=== PATIENT | male | born 1955 | race Caucasian/White ===

== ENCOUNTER 2020-05-26 06:54 | Day surgery (SDC) | payer OTHER ==
--- OUTSIDE RECORDS SUMMARY | 2020-05-26 06:47 | XMS REPORT | Clinical Summary ---
:1955 Author Organization [facility] Address [address] [place] [address] Care Team Providers Name Role Phone Asked, No Pcp Primary Care Provider Unavailable Allergies Not on File Medications Not on file Active Problems Not on file Encounters Date Type Specialty Care Team Description 03/24/2020 Hospital Encounter Radiology Vishnu Torres MD Hype rlipidemia, unspecified 03/24/2020 Hospital Encounter Radiology Vishnu Torres MD Hype rlipidemia, unspecified 03/24/2020 Travel 03/11/2020 Travel 03/09/2020 Transcribe Orders Access Vishnu Torres MD Hyper lipidemia, unspecified (Primary Dx) after 05/26/2019 Social History Tobacco Use Types Packs/Day Years Used Date Never Assessed Sex Assigned at Date Recorded Not on file Last Filed Vital Signs Not on file Plan of Treatment Health Maintenance Due Date Last Done Comments COVID-19 VACCINE (1 of 2) 1970 COLONOSCOPY SCREENING 2004 SHINGLES VACCINES (#1) 2004 INFLUENZA VACCINE 12/12/2019 65+ PNEUMOCOCCAL VACCINE (1 of 1 - PPSV23) 12/14/2019 Procedures Procedure Name Priority Date/Time Associated Diagnosis Comme nts US VASCULAR Routine 03/24/2020 11:14 AM Hyperlipidemia, Resul ts for this SCREENING HEART PHYSICAL THERAPIST ASSISTANT unspecified procedure ar e in SCAN PLUS the results section. CT HEART SCAN PLUS Routine 03/24/2020 8:31 AM Hyperlipidemia, Results for this W PHYSICIAN ORDER PHYSICAL THERAPIST ASSISTANT unspecified procedure are in the results section. after 05/26/2019 Results Pv vascular screening heart scan plus (self pay) (03/24/2020 11:14 AM PHYSICAL THERAPIST ASSISTANT) Specimen Narrative Performed At EXAM: US VASCULAR SCREENING HEART SCAN PLUS [facility] HISTORY:E78.5 Hyperlipidemia unspecifi ed, E78.5 COMPARISON: None available TECHNIQUE: Grayscale and color Doppler images were o btained of the carotid arteries and infrarenal abdominal aorta. Ankle -brachial indices were also obtained. IMPRESSION: 1. Calcified atherosclerotic plaque is in the left car otid artery bulb. Further evaluation with a dedicated manzano tid artery Doppler recommended. 2. No significant atherosclerotic plaque in the infrar enal abdominal aorta. No infrarenal abdominal aortic an eurysm appreciated. 3. Ankle brachial indices are within nor mal limits. Measured Ankle Brachial indices: Right leg Posterior tibial: 1.17 Dorsalis pedis: 1.09 Left leg Posterior tibial: 1.12 Dorsalis pedis: 1.19 [facility]-[id number] Procedure Note Interface, Radiology Results Incoming - 03/24/2020 11:35 AM PHYSICAL THERAPIST ASSISTANT EXAM: US VASCULAR SCREENING HEART SCAN PLUS HISTORY:E78.5 Hyperlipidemia unspecifie d, E78.5 COMPARISON: None available TECHNIQUE: Grayscale and color Doppler images were obtained of the carotid arteries and infrarenal abdominal aorta. Ankle-brachial indices were also obtained. IMPRESSION: 1. Calcified atherosclerotic plaque is i n the left carotid artery bulb. Further evaluation with a dedicated carotid artery Doppler recommended. 2. No significant atherosclerotic plaque in the infrarenal abdominal aorta. No infrarenal abdominal aortic aneurysm appreciated. 3. Ankle brachial indices are within nor mal limits. Measured Ankle Brachial indices: Right leg Posterior tibial: 1.17 Dorsalis pedis: 1.09 Left leg Posterior tibial: 1.12 Dorsalis pedis: 1.19 [facility]-[id number] Performing Organization Address City/State/ZIP Code Phon e Number [facility] [address] [place] [address] Ct heart scan plus w physician order (self pay) (03/24/2020 8:31 AM PHYSICAL THERAPIST ASSISTANT) Specimen Narrative Performed At EXAMINATION: CT HEART SCAN PLUS W PHYS ICIAN ORDER [facility] CLINICAL HISTORY: E78.5 Hyperlipidemia unspecified, E78.5 COMPARISON: None. IMPRESSION: Sequential 2.[address] cuts were obtained through the est using [employer] VCT [address] scanner with ECG gating. In teractive image viewing and volumetric display and analysis were also performed. The CAC score was quantified using the Agatston scoring method. Agatston total coronary artery calcium s core: 835 Left Main (LM): 85 Left Anterior Descending (LAD): 513 Left Circumflex (LCx): 47 Right Coronary Artery (RCA): 190 Posterior Descending Artery (PDA): 0 Agatston Calcium Score (total) Extent of Atherosclerosis 0-Normal 1-10 - Minimal extent of atherosclerosis 10-100 - Mild extent of atherosclerosis 100-400 - Moderate extent of atheroscler osis > 400 - Severe extent of atherosclerosis RECOMMENDATION: A score of 835 places the patient in the 80th percenti le rank. That means 20% of the males at the ages from 61-65 have a h igher calcium score. Intensive risk factor modification is indicated to pre vent further progression (>0). Please contact your ph ysician regarding these results. INCIDENTAL FINDINGS: Ascending thoracic aorta measures up to 4 cm. Tiny hia bret hernia. Degenerative changes of the osseous stru ctures. [id number] Procedure Note Interface, Radiology Results Incoming - 03/24/2020 8:40 AM PHYSICAL THERAPIST ASSISTANT EXAMINATION: CT HEART SCAN PLUS W PHYSICIAN ORDER CLINICAL HISTORY: E78.5 Hyperlipidemia unspecified, E78.5 COMPARISON: None. IMPRESSION: Sequential 2.[address] cuts were obtained through the chest using [employer] VCT [address] scanner with ECG gating. Interactive image viewing and volumetric display and analysis were also performed. The CAC score was quantified using the Agatston scoring method. Agatston total coronary artery calcium s core: 835 Left Main (LM): 85 Left Anterior Descending (LAD): 513 Left Circumflex (LCx): 47 Right Coronary Artery (RCA): 190 Posterior Descending Artery (PDA): 0 Agatston Calcium Score (total) Extent of Atherosclerosis 0-Normal 1-10 - Minimal extent of atherosclerosis 10-100 - Mild extent of atherosclerosis 100-400 - Moderate extent of atheroscler osis > 400 - Severe extent of atherosclerosis RECOMMENDATION: A score of 835 places the patient in the 80th percentile rank. That means 20% of the males at the ages from 61-65 have a higher calcium score. Intensive risk factor modification is in dicated to prevent further progression (>0). Please contact your physician regarding these results. INCIDENTAL FINDINGS: Ascending thoracic aorta measures up to 4 cm. Tiny hiatal hernia. Degenerative changes of the osseous structures. [id number] Performing Organization Address City/State/ZIP Code Phon e Number [facility] [address] [place] [address] after 05/26/2019 Advance Directives For more information, please contact: [phone] Type Date Recorded Patient Jigsawyer Explanati on Advance Directives, Living Will and Medical Power of Equity Sales Assistant
--- OUTSIDE RECORDS SUMMARY | 2020-05-26 06:47 | XMS REPORT | Continuity of Care Document ---
:1955 Author Organization [facility] t Address [address] [place] [address] Care Team Providers Name Role Phone Asked, Pcp Primary Care Physician Unavailable Brian HEATH Attending Clinician + Problems This patient has no known problems. Allergies, Adverse Reactions, Alerts This patient has no known allergies or adverse reactions. Social History Social Habit Start Date Stop Date Quantity Comments Source Sex Assigned At Mandie Hernandez Medications This patient has no known medications. Procedures Procedure Date / Time Performed Performing Clinician Sour e US VASCULAR SCREENING 2020-03-24 11:14:51 Vishnu Torres HEART SCAN PLUS CT HEART SCAN PLUS W 2020-03-24 08:31:26 Vishnu Torres PHYSICIAN ORDER Plan of Care Planned Activity Planned Date Details Comments Source Future Scheduled 2019-12-14 65+ PNEUMOCOCCAL [facility] [employer] [facility] 00:00:00 VACCINE (1 of 1 - PPSV23) [code = 65+ PNEUMOCOCCAL VACCINE (1 of 1 - PPSV23)] Future Scheduled 2019-12-12 INFLUENZA VACCINE [facility] 00:00:00 [code = INFLUENZA VACCINE] Future Scheduled 2004 COLONOSCOPY SCREENING Ho hugo [facility] Test 00:00:00 [code = COLONOSCOPY SCREENING] Future Scheduled 2004 SHINGLES VACCINES (#1) H geovany [employer] Test 00:00:00 [code = SHINGLES VACCINES (#1)] Future Scheduled 1970 COVID-19 VACCINE (1 of [place] [facility] 00:00:00 2) [code = COVID-19 VACCINE (1 of 2)] Encounters Start End Encounter Admission Attending Care Care Encounter Source Date/Time Date/Time Type Type Clinicians Facility Department ID 2020-03-24 2020-03-24 Outpatient BRI[facility] [id number] [address] [place] 00:00:00 00:00:00 VISHNU 09Paulino [facility] 2020-03-24 2020-03-24 Outpatient BRIAN [facility] [id number] [address] [place] 00:00:00 00:00:00 VISHNU [address] Results Test Description Test Time Test Comments Results Result Sourc e Comments Pv vascular 2020-03-13 [facility] screening heart 2 Radiology Results In thodist scan plus (self 11:32:29 Incoming - pay) 03/24/2020 11:35 AM CSTEXAM: US VASCULAR SCREENING HEART SCAN PLUSHISTORY:E78.5 Hyperlipidemia unspecified, E78.5COMPARISON: None availableTECHNIQUE: Grayscale and color Doppler images were obtained of the carotid arteries and infrarenal abdominal aorta. Ankle-brachial indices were also obtained.IMPRESSION: 1. Calcified atherosclerotic plaque is in the left carotid artery bulb. Further evaluation with a dedicated carotid artery Doppler recommended.2. No significant atherosclerotic plaque in the infrarenal abdominal aorta. No infrarenal abdominal aortic aneurysm appreciated.3. Ankle brachial indices are within normal limits. Measured Ankle Brachial indices:Right legPosterior tibial: 1.17Dorsalis pedis: 1.09Left legPosterior tibial: 1.12Dorsalis pedis: [id number] Ct heart scan 2020-03-13 [facility] plus w physician 2 Radiology Results M ethodist order (self pay) 08:37:12 Incoming - 03/24/2020 8:40 AM CSTEXAMINATION: CT HEART SCAN PLUS W PHYSICIAN ORDERCLINICAL HISTORY: E78.5 Hyperlipidemia unspecified, E78.5COMPARISON: None.IMPRESSION:Sequ ential 2.[address] cuts were obtained through the chest using [employer] VCT [address] scanner with ECG gating. Interactive image viewing and volumetric display and analysis were also performed. The CAC score was quantified using the Agatston scoring method.Agatston total coronary artery calcium score: 835Left Main (LM): 85Left Anterior Descending (LAD): 513Left Circumflex (LCx): 47Right Coronary Artery (RCA): 190Posterior Descending Artery (PDA): 0Agatston Calcium Score (total) Extent of Atherosclerosis0-Nor mal 1-10 - Minimal extent of ixdfjhjfsxjpokt78-90 0 - Mild extent of qhedarngtdqxxpw187-6 00 - Moderate extent of atherosclerosis> 400 - Severe extent of atherosclerosisRECOM MENDATION:A score of 835 places the patient in the 80th percentile rank. That means 20% of the males at the ages from 61-65 have a higher calcium score. Intensive risk factor modification is indicated to prevent further progression (>0). Please contact your physician regarding these results.INCIDENTAL FINDINGS:Ascending thoracic aorta measures up to 4 cm. Tiny hiatal hernia. Degenerative changes of the osseous structures.[id number]
[2020-05-26] MEDS ORDERED: FENTANYL CITR 100 MCG/2 ML ONE (07:10)
[2020-05-26] MEDS ORDERED: dexAMETHasone 10 MG/ML VIAL ONE (07:10)
[2020-05-26] MEDS ORDERED: propofoL 200 MG/20 ML VIAL IV ONE ×3 (07:10→07:27)
[2020-05-26] MEDS ORDERED: MIDAZOLAM HCL 2 MG/2 ML INJ ONE (07:10)
[2020-05-26] MEDS ORDERED: LIDOCAINE 1% MPF 5 ML VIAL ONE (07:10)
--- OUTSIDE RECORDS SUMMARY | 2020-05-26 07:12 | XMS REPORT | Continuity of Care Document ---
:1955 Author Organization [facility] t Address [address] [place] [address] Care Team Providers Name Role Phone Asked, Pcp Primary Care Physician Unavailable Brian HEATH Attending Clinician Problems This patient has no known problems. [...] Source Future Scheduled 2019-12-14 65+ PNEUMOCOCCAL J[facility]i [employer] Test 00:00:00 VACCINE (1 of 1 - PPSV23) [code = 65+ PNEUMOCOCCAL VACCINE (1 of 1 - PPSV23)] Future Scheduled 2019-12-12 INFLUENZA VACCINE Naun larose [employer] Test 00:00:00 [code = INFLUENZA VACCINE] Future Scheduled 2004 COLONOSCOPY SCREENING Ho hugo [employer] Test 00:00:00 [code = COLONOSCOPY SCREENING] Future Scheduled 2004 SHINGLES VACCINES (#1) H geovany [employer] Test 00:00:00 [code = SHINGLES VACCINES (#1)] Future Scheduled 1970 COVID-19 VACCINE (1 of [place] [facility] Test 00:00:00 2) [code = COVID-19 VACCINE (1 of 2)] Encounters Start End Encounter Admission Attending Care Care Encounter Source Date/Time Date/Time Type Type Clinicians Facility Department ID 2020-03-24 2020-03-24 Outpatient [facility] [id number] [address] [place] 00:00:00 00:00:00 VISHNU Hinojosa [facility] 2020-03-24 2020-03-24 Outpatient [facility] [id number] [address] [place] 00:00:00 00:00:00 VISHNU 09Elsi Method i st Results Test Description Test Time Test Comments Results Result Sourc e Comments Pv vascular 2020-03-13 [facility] screening heart 2 Radiology Results Me thodist scan plus (self 11:32:29 Incoming - [...] 1.17Dorsalis pedis: 1.09Left legPosterior tibial: 1.12Dorsalis pedis: [id number] Ct heart scan 2020-03-13 [facility] plus w physician 2 Radiology Results M ethodist order (self pay) 08:37:12 Incoming - 03/24/2020 8:40 AM CSTEXAMINATION: CT HEART SCAN PLUS W PHYSICIAN ORDERCLINICAL HISTORY: E78.5 Hyperlipidemia unspecified, E78.5COMPARISON: None.IMPRESSION:Sequ ential 2.[address] cuts were obtained through the chest using [employer] VCT [address] scanner with ECG gating. Interactive image viewing and volumetric display and analysis were also performed. The CAC score was quantified using the Agatston scoring method.Agatston total coronary artery calcium score: 835Left Main (LM): 85Left Anterior Descending (LAD): 513Left Circumflex (LCx): 47Right Coronary Artery (RCA): 190Posterior Descending Artery (PDA): 0[facility] Cal[facility] Score (total) Extent of Atherosclerosis0-Nor mal 1-10 - Minimal extent of ehvhmetcgsigzbh03-08 0 - Mild extent of zatjfczlhledvzw762-8 00 - Moderate extent of atherosclerosis> 400 [...] hiatal hernia. Degenerative changes of the osseous structures.[id number]
--- OUTSIDE RECORDS SUMMARY | 2020-05-26 07:12 | XMS REPORT | Clinical Summary ---
:1955 Author Organization [facility] Address [address] [place] [address] Care Team Providers Name Role Phone Asked, [...] Hyperlipidemia, Resul ts for this SCREENING HEART BELL CLEANER unspecified procedure ar e in SCAN PLUS the results section. CT HEART SCAN PLUS Routine 03/24/2020 8:31 AM Hyperlipidemia, Results for this W PHYSICIAN ORDER BELL CLEANER unspecified procedure are in the results section. after 05/26/2019 Results Pv vascular screening heart scan plus (self pay) (03/24/2020 11:14 AM BELL CLEANER) Specimen Narrative Performed At EXAM: US VASCULAR [...] leg Posterior tibial: 1.12 Dorsalis pedis: 1.19 [facility]-[id number] Procedure Note Interface, Radiology Results Incoming - 03/24/2020 11:35 AM BELL CLEANER EXAM: US VASCULAR SCREENING HEART SCAN PLUS [...] leg Posterior tibial: 1.12 Dorsalis pedis: 1.19 [facility]-[id number] Performing Organization Address City/State/ZIP Code Phon e Number [facility] [address] [place] [address] Ct heart scan plus w physician order (self pay) (03/24/2020 8:31 AM BELL CLEANER) Specimen Narrative Performed At EXAMINATION: CT HEART SCAN PLUS W PHYS ICIAN ORDER [facility] CLINICAL HISTORY: E78.5 Hyperlipidemia unspecified, E78.5 COMPARISON: None. IMPRESSION: Sequential 2.[address] cuts were obtained through the est using [employer]peed VCT [address] scanner with ECG [...] Degenerative changes of the osseous stru ctures. [id number] Procedure Note Interface, Radiology Results Incoming - 03/24/2020 8:40 AM BELL CLEANER EXAMINATION: CT HEART SCAN PLUS W PHYSICIAN ORDER CLINICAL HISTORY: E78.5 Hyperlipidemia unspecified, E78.5 COMPARISON: None. IMPRESSION: Sequential 2.[address] cuts were obtained through the chest using [employer] VCT [address] scanner with ECG [...] hernia. Degenerative changes of the osseous structures. [id number] Performing Organization Address City/State/ZIP Code Phon e Number [facility] [address] [place] [address] after 05/26/2019 Advance Directives For more information, please contact: [phone] Type Date Recorded Patient Signwriter Explanati on Advance Directives, Living Will and Medical Power of Automatic Head Sawyer
[2020-05-26] MEDS: Ringers Lactate 1,000 ML IV ONE ×2 (07:40→07:54)
[2020-05-26] MEDS ORDERED: CEFAZOLIN/SWI 1gm 1 GM/10 ML SYR ONE (07:45)
[2020-05-26] MEDS ORDERED: HYDROCODONE/APAP 5/325 MG TAB PO PRN (08:37)
[2020-05-26] MEDS ORDERED: PHENAZOPYRIDINE 100MG TAB PO ONE (08:37)
--- NOTE | 2020-05-26 08:40 | RAD REPORT ---
EXAM DESCRIPTION: RAD - Urography Retrograde - 05/26/2020 8:18 am CLINICAL HISTORY: LT STENT COMPARISON: No comparisons FINDINGS: Total fluoro time: 0.5 minutes.
--- NOTE | 2020-05-26 08:43 | RAD REPORT ---
EXAM DESCRIPTION: RAD - Chest Pa And Lat (2 Views) - 05/26/2020 7:33 am CLINICAL HISTORY: PREOP, STAT, BED 1 Chest pain. COMPARISON: No comparisons FINDINGS: The lungs are clear. The heart is normal in size. Trace right pleural thickening. No displ aced fractures.
--- NOTE | 2020-05-26 09:08 | OP ---
Surgeon: ITZEL NICOLE Preoperative Diagnoses: 1.Left obstructive ureterolithiasis. 2.Acute kidney injury. Postoperative Diagnoses: 1.Left obstructive ureterolithiasis. 2.Acute kidney injury. 3.Papillary necrosis. Principle Procedure: 1.Cystoscopy. 2.Left retrograde pyelography. 3.Left ureteral stent placement. Indication For Procedure: Mr. Tinoco presented to the Urology Clinic with a left 7 mm mid distal ureteral calculus observed on CT scan from several days ago this month. At the time of the emergenc y department visit, his creatinine was 1.9, and in the absence of any known chronic kidney disease, t his is indicative of likely acute kidney injury. As a result, to avoid any further permanent decline in his renal function, I recommended urgent operative management to manage the obstruction and relie ve his kidney function to recover. Procedure In Detail: The patient was consented in the preoperative holding area before being transfe rred to the operative suite where general anesthesia using an LMA was induced. 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 He was given Ancef IV antimicrobial prophylaxis and pneumo boots were provided for DVT prophylaxi s. He was placed in the lithotomy position, padded and secured to the table appropriately. The case was begun using a 22-Brazilian rigid cystoscope to traverse the urethra and into the bladder with ease. There was evidence of trilobar hypertrophy with an elevated median bar without a significant intrav esical projecting median lobe. The bladder was moderately trabeculated throughout. There were no gr oss mucosal lesions, foreign bodies, or stones noted throughout. The trigone was orthotopic in locat ion, and the left ureteral orifice was cannulated within it. Using the tip of a 5-Brazilian ureteral ac cess catheter, a retrograde pyelogram was performed. Left retrograde pyelography: Using a 70:30 mixture of Omnipaque and saline, contrast was injected via the 5-Brazilian ureteral access catheter into the distal ureter, which did propagate slowly and with some degree of resistance indic ative of obstruction before slowly entering a hydronephrotic renal pelvis. There was evidence of ure tero nephrosis down to within 2 cm of the UVJ. Once contrast was shown to enter the renal pelvis del ineating it, I then stopped contrast injection and instead placed a Sensor wire via the 5-Brazilian uret eral access catheter. It did pass easily up the ureter and coil within the upper pole of the kidney as observed fluoroscopically. I then removed the 5-Brazilian ureteral access catheter and replaced it w ith a 6-Brazilian x 26 cm double-J left ureteral stent with a coil observed fluoroscopically within the upper pole of the kidney and 1 cystoscopically within the bladder. I then decompressed the bladder o f fluid and urine, and there was significant tissue debris then emitted from the kidney indicative of papillary necrosis. The scope was then removed, and the patient was taken out of the lithotomy posi tion before being awakened from general anesthesia. He was then transferred to the recovery room in a good condition. Complications: None. Discharge Disposition: He will be seen in followup in the Urology Clinic in the coming weeks for rachana herndon for management of his definitive left ureteroscopy and laser lithotripsy. Preoperative evaluat ion will include repeat basic metabolic panel assessment to ensure recovery of his renal function to baseline. Additionally, a urine culture should be obtained to assess for the presence of infection h iding behind the stone in the upper tract. This should all be done prior to his next scheduled surge ry, which will be completed within the next 1-2 months. ZONIA/ELEAZARL Voice ID: [id number] Report ID: [id number]
[2020-05-26 09:28] VITALS: BP 131/75; O2SAT 99
[2020-05-26 09:31] VITALS: TEMP 98.5
--- NOTE | 2020-05-26 11:21 | EKG ---
Test Date: 2020-05-26 Test Time: 07:44:02 Book Or Script Editor: MARAL MEASUREMENT RESULTS: Intervals: Rate: 92 TN: 152 QRSD: 96 QT: 346 QTc: 427 Galt: P: 65 TN: 152 QRS: 5 T: 59 INTERPRETIVE STATEMENTS: Normal sinus rhythm Normal ECG Compared to ECG 08/21/2006 07:28:21 No significant changes Electronically Signed On 05-26-20 11:20:40 PLANTING MATERIAL UNLOADER by Angelito James
== END 2020-05-26 09:35 | disposition home or self-care (01) ==
LOC: OR 06:54
PROVIDERS: ATTEND Urology
PROC: BT1FZZZ Fluoroscopy of Left Kidney, Ureter and Bladder (ICD-10-PCS; 2020-05-26)
PROC: 0T778DZ Dilation of Left Ureter with Intraluminal Device, Via Natural or Artificial Opening Endoscopic (ICD-10-PCS; principal; 2020-05-26 07:30)
DX: N20.1 Calculus of ureter (principal); N17.2 Acute kidney failure with medullary necrosis; N13.30 Unspecified hydronephrosis; I10 Essential (primary) hypertension; E78.00 Pure hypercholesterolemia, unspecified; Z20.822 Contact with and (suspected) exposure to COVID-19
CPT/HCPCS: 52332; 93005; 71046; 74420; 52005; U0002; J2704 ×3; J2250; J3010; J1100; J0690; J7120

== ENCOUNTER 2020-06-22 08:13 | Day surgery (SDC) | payer OTHER ==
[~2020-06-22 08:13] MED LIST: AMPICILLIN SODIUM 2 GM in NA CHLORIDE 0.9% 100 ML IVPB SCH; Gentamicin Inj 320 MG in NA CHLORIDE 0.9% 100 ML IV SCH
[2020-06-22] MEDS ORDERED: MIDAZOLAM HCL 2 MG/2 ML INJ ONE (08:52)
[2020-06-22] MEDS ORDERED: FENTANYL CITR 100 MCG/2 ML ONE (08:52)
[2020-06-22] MEDS ORDERED: LIDOCAINE 1% MPF 5 ML VIAL ONE (08:52)
[2020-06-22] MEDS ORDERED: propofoL 200 MG/20 ML VIAL IV ONE (08:52)
[2020-06-22] MEDS ORDERED: Ringers Lactate 1,000 ML IV ONE (09:07)
[2020-06-22] MEDS ORDERED: PHENAZOPYRIDINE 100MG TAB PO ONE (10:39)
[2020-06-22] MEDS ORDERED: HYDROCODONE/APAP 5/325 MG TAB PO PRN (10:39)
[2020-06-22 11:27] VITALS: BP 150/80; TEMP 97; O2SAT 99
--- NOTE | 2020-06-22 11:30 | RAD REPORT ---
EXAM DESCRIPTION: RAD - Urethrocystogrphy Retrograde - 06/22/2020 10:45 am FINDINGS: There are total of 14 portable KUB images obtained during a fluoroscopic assisted placemen t of a left ureteral stent. Images show stepwise placement of the stent with no suspicious or unexpected finding. Fluoro time was 11 seconds.
--- OUTSIDE RECORDS SUMMARY | 2020-06-22 13:30 | XMS REPORT ---
:1955 Author Organization [facility] Address [address], [address] [place] [address] Care Team Providers Name Role Phone Randall Paz Unavailable [phone] PROBLEMS Type Condition ICD9-CM CQY40-MS Onset Condition SNOMED Code Notes Code Code Dates Status Problem Bilateral kidney N20.0 Active 35864317 stones Problem NADJA (acute kidney N17.9 Active [id number] 108 injury) Problem Nephroureterolithiasi N20.2 Active 288546254 s Problem Hydronephrosis, left N13.30 Active 23362313 ALLERGIES No Known Allergies ENCOUNTERS from 1955 to 2020-06-06 Encounter Location Date Provider Diagnosis [facility] [address] May, Randallannmarie Paz NADJA (acute k idney injury) Specialty/Urology [address] [address] N17.9 ; Hy dronephrosis, left [place], [place] N13.30 ; [id number] Nephroureteroli thiasis N20.[address] infection without hematur ia, site unspecified N39 .0 IMMUNIZATIONS No Information SOCIAL HISTORY Tobacco Use: Social History Observation Description Date Details (start date - stop date) Never Smoker Sex Assigned At : Social History Observation Description Sex Assigned At Unknown Alcohol Screen Question Answer Notes Did you have a drink containing alcohol in Yes the past year? Points 3 Interpretation Negative How often did you have a drink containing Two to three times per week (3 alcohol in the past year? points) Tobacco Use/Smoking Question Answer Notes Are you a never smoker REASON FOR REFERRAL No Information VITAL SIGNS Height 70 in May, Weight 203.8 lbs May, Temperature 97.6 degrees Fahrenheit May, BMI 29.24 kg/m2 May, Oximetry 97 % May, Blood pressure systolic 137 mm Hg May, Blood pressure diastolic 73 mm Hg May, MEDICATIONS Medication SIG (Take, Route, Notes Start Date End Date Status Frequency, Duration) Amlodipine Besylate 5 1 tablet Orally Once a Active MG day tramadol Active Irbesartan-Hydrochlorot 1 tablet Orally Once a Active hiazide 300-12.5 MG day Vitamin D 125 MCG (5000 as directed Orally Active UT) Viagra 100 MG 1/2 tablet Orally Once May, Dec, Active a day for 30 day(s) Flomax 0.4 MG 1 capsule Orally Once a Active day Cipro 500 MG 1 tablet Orally every May,Jun, Active 12 hrs for 10 day(s) Lipitor 20 MG 1 tablet Orally Once a Active day Aspirin 81 81 MG 1 tablet Orally Once a Active day Centrum Silver - as directed Orally Active PROCEDURES No Information RESULTS No Results REASON FOR VISIT S/P STENT PLACEMENT -NEEDS A BMP, URINE CX MEDICAL (GENERAL) HISTORY Type Description Date Medical History HIGH BLOOD PRESSURE Medical History HIGH CHOLESTEROL Medical History HX OF FAMILY HYPERTHERMIA Surgical History BILATERAL HERNIA REPAIRED Surgical History CYSTOSCOPY, LEFT RETROGRADE PYELOGRAPHY, LEFT STENT PLACEMENT -COREY 05/26/2020 Goals Section No Information Health Concerns No Information MEDICAL EQUIPMENT No Information MENTAL STATUS No Information FUNCTIONAL STATUS No Information ASSESSMENTS Encounter Date Diagnosis Assessment Treatment Treatment Notes Notes Clinical Notes May, NADJA (acute kidney injury) (ICD-10 - N17.9) May, Hydronephrosis, left (ICD-10 - N13.30) May, Nephroureterolithiasis (ICD-10 - N20.2) May, Urinary tract infection without hematuria, site unspecified (ICD-10 - N39.0) PLAN OF TREATMENT Medication Medication Name Sig Start Date Stop Date Viagra 100 MG 1/2 tablet Orally Once a day for 30 day(s) Ja n, 2020Dec, Cipro 500 MG 1 tablet Orally every 12 hrs for 10 day(s) n2020Jun, Next Appt Details Provider Name:Randall Paz, 11:00:00 AM, [address] [place] [address], [place], [address], Insurance Providers Payer Name Payer Payer Insured Patient Coverage Coverage End Address Phone Name Relationship to Start Date Carson e Insured [employer] [phone] [place], self MEDICARE [id number] [facility] [address]
--- OUTSIDE RECORDS SUMMARY | 2020-06-22 13:30 | XMS REPORT | Continuity of Care Document ---
:1955 Author Organization [facility] t Address [address] [place] [address] Care Team Providers Name Role Phone Asked, [...] Source Future Scheduled 2019-12-14 65+ PNEUMOCOCCAL Jordi Christian Test 00:00:00 VACCINE (1 of 1 - PPSV23) [code = 65+ PNEUMOCOCCAL VACCINE (1 of 1 - PPSV23)] Future Scheduled 2019-12-12 INFLUENZA VACCINE Heidito thuan Christian Test 00:00:00 [code = INFLUENZA VACCINE] Future Scheduled 2004 COLONOSCOPY SCREENING Ho hugo Christian Test 00:00:00 [code = COLONOSCOPY SCREENING] Future Scheduled 2004 SHINGLES VACCINES (#1) H geovany Christian Test 00:00:00 [code = SHINGLES VACCINES (#1)] Future Scheduled 1972 Hepatitis C screening Ho ton Christian Test 00:00:00 (procedure) [code = [id number]] Future Scheduled 1970 COVID-19 VACCINE (1 of H [facility] Christian Test 00:00:00 2) [code = COVID-19 VACCINE (1 of 2)] Encounters Start End Encounter Admission Attending Care Care Encounter Source Date/Time Date/Time Type Type Clinicians Facility Department ID 2020-06-06 2020-06-06 Outpatient [facility] [id number] [facility] 2020-05-25 2020-05-25 Outpatient [facility] [id number] [facility] 2020-03-24 2020-03-24 Outpatient BRIAN, [facility] [id number] [address] 00:00:00 00:00:00 [facility] [address] 2020-03-24 2020-03-24 Outpatient BRIAN, [facility] [id number] [address] [place] 00:00:00 00:00:00 [facility] [address] Results Test Description Test Time Test Comments Results Result [facility] e Comments Pv vascular 2020-03-13 [facility] screening heart 2 Radiology Results Ri thodist scan plus (self 11:32:29 Incoming - pay) 03/24/2020 11:35 AM CSTEXAM: VASCULAR SCREENING HEART SCAN PLUSHISTORY:E78.5 Hyperlipidemia unspecified, [...] 1.17Dorsalis pedis: 1.09Left legPosterior tibial: 1.12Dorsalis pedis: [id number] Ct heart scan 2020-03-13 [facility] plus w physician 2 Radiology Results M ethodist order (self pay) 08:37:12 Incoming - 03/24/2020 8:40 AM CSTEXAMINATION: CT HEART SCAN PLUS W PHYSICIAN ORDERCLINICAL HISTORY: E78.5 Hyperlipidemia unspecified, E78.5COMPARISON: None.IMPRESSION:Sequ ential 2.[address] cuts were obtained through the chest using Trifacta VCT [address] scanner with ECG [...] Atherosclerosis0-Nor mal 1-10 - Minimal extent of mbnfnlrdbqwfguw95-85 0 - Mild extent of agwltqynqzuhdxx391-3 00 - Moderate extent of atherosclerosis> 400 [...] hiatal hernia. Degenerative changes of the osseous structures.[facility] [id number]
--- OUTSIDE RECORDS SUMMARY | 2020-06-22 13:30 | XMS REPORT | Clinical Summary ---
:1955 Author Organization [facility] Address [address] [place] [address] Care Team Providers Name Role Phone Asked, [...] MD Hyper lipidemia, unspecified (Primary Dx) after 06/22/2019 Social History Tobacco Use Types Packs/Day Years Used Date Never Assessed Sex Assigned at Date Recorded Not on file Last Filed Vital Signs Not on file Plan of Treatment Health Maintenance Due Date Last Done Comments COVID-19 VACCINE (1 of 2) 1970 HEPATITIS C SCREENING 1972 COLONOSCOPY SCREENING 2004 SHINGLES VACCINES (#1) 2004 INFLUENZA VACCINE 12/12/2019 65+ PNEUMOCOCCAL VACCINE (1 of 1 - PPSV23) 12/14/2019 Procedures Procedure Name Priority Date/Time Associated Diagnosis Comme nts US VASCULAR Routine 03/24/2020 11:14 AM Hyperlipidemia, Resul ts for this SCREENING HEART HARDWARE SALES ASSISTANT unspecified procedure ar e in SCAN PLUS the results section. CT HEART SCAN PLUS Routine 03/24/2020 8:31 AM Hyperlipidemia, Results for this W PHYSICIAN ORDER HARDWARE SALES ASSISTANT unspecified procedure are in the results section. after 06/22/2019 Results Pv vascular screening heart scan plus (self pay) (03/24/2020 11:14 AM HARDWARE SALES ASSISTANT) Specimen Narrative Performed At EXAM: US [...] leg Posterior tibial: 1.12 Dorsalis pedis: 1.19 [id number] Procedure Note Interface, Radiology Results Incoming - 03/24/2020 11:35 AM HARDWARE SALES ASSISTANT EXAM: US VASCULAR SCREENING HEART SCAN [...] leg Posterior tibial: 1.12 Dorsalis pedis: 1.19 [facility]-[id number] Performing Organization Address City/State/ZIP Code Phon e Number [facility] [address] [place] [address] Ct heart scan plus w physician order (self pay) (03/24/2020 8:31 AM HARDWARE SALES ASSISTANT) Specimen Narrative Performed At EXAMINATION: CT HEART SCAN [facility]US [facility]: E78.5 Hyperlipidemia unspecified, E78.5 COMPARISON: None. IMPRESSION: Sequential 2.[address] cuts were obtained through the est using TutorGrouppeed VCT [address] scanner with ECG [...] Degenerative changes of the osseous stru ctures. [id number] Procedure Note Hm Interface, Radiology Results Incoming - 03/24/2020 8:40 AM HARDWARE SALES ASSISTANT EXAMINATION: CT HEART SCAN PLUS W PHYSICIAN ORDER CLINICAL HISTORY: E78.5 Hyperlipidemia unspecified, E78.5 COMPARISON: None. IMPRESSION: Sequential 2.[address] cuts were obtained through the chest using Satiety VCT [address] scanner with ECG [...] hernia. Degenerative changes of the osseous structures. [id number] Performing Organization Address City/State/ZIP Code Phon e Number [facility] [address] [place] [address] after 06/22/2019 Advance Directives For more information, please contact: [phone] Type Date Recorded Patient Utilization Specialist Explanati on Advance Directives, Living Will and Medical Power of Filling Room Operator
--- NOTE | 2020-06-26 09:07 | OP ---
Surgeon: ITZEL NICOLE Preoperative Diagnosis: Left ureterolithiasis and left nephrolithiasis. Postoperative Diagnosis: Left 7 mm proximal ureterolithiasis. Principle Procedure: 1.Cystoscopy. 2.Left retrograde pyelography. 3.Left ureteroscopy and pyeloscopy. 4.Left ureteral stone basketing. 5.and left ureteral stent exchange. Indication For Procedure: Mr. Tinoco presented to Urology Clinic with acute kidney injury associ ated with an obstructing 7 mm proximal mid ureteral calculus. He underwent cystoscopy and urgent kristin nt placement with resolution of his acute kidney injury. He presents today for definitive management of his renal stone disease. Procedure Note: The patient was consented in the preoperative holding area before being transferred to operative suite where general anesthesia was induced using an LMA. He was given ampicillin and ge ntamicin, IV antimicrobial prophylaxis, and pneumo boots were provided for DVT prophylaxis. He was p laced in the lithotomy position, padded and secured to the table appropriately. His genitalia were p repped using Hibiclens and he was draped in standard fashion. The case was begun using a 22-Welsh r igid cystoscope to traverse the urethra and into the bladder with ease. The stent was noted to emana te from the left ureteral orifice and was grasped and delivered to the meatus. Fluoroscopic imagery was used to identify the tip of the stent still in the mid proximal ureter, and the Sensor wire was a dvanced via the stent and did coil within the upper pole of the kidney. Over the Sensor wire, the st ent was removed and a dual-lumen catheter was placed into the mid distal ureter. A retrograde pyelog anurag was then performed. Left retrograde pyelography: Using a 70:30 mixture of Omnipaque and saline, contrast was injected via the second lumen of the dual -lumen catheter and did confirm the adequate intraluminal location of the catheter and wires. The re nal pelvis was delineated suggesting appropriate coiling of the wire. As a result, the dual-lumen ca theter was removed and a semi-rigid ureteroscope was advanced into the ureter via the urethra under d irect vision. I was able to navigate the ureteroscope into the proximal ureter where the stone was i dentified. Because of the location near the UPJ and lack of desire to use the semi-rigid ureteroscop e to fragment the stone in that location, I employed a 1.9-Welsh 0 tip Nitinol basket to grasp the s tone and attempt to deliver it more into the mid distal ureter for laser lithotripsy. However, while moving the stone from its proximal down to the distal location, it clearly was able to easily pass t hrough the distal ureter and was easily extracted with no point of resistance encountered. Thus, the stone was removed in total via basketing only and sent for chemical analysis. Because of the presen ce of a suspected [address] scan within the renal calices, I then replaced the dual-lumen cath eter and confirmed the intraluminal location again before passing a Bentson guidewire into the [facility] ting system alongside the safety wire. I then performed flexible ureteroscopy, passing the flexible ureteroscope over the Bentson wire into the upper pole of the kidney. I surveyed each of the calices of the kidney and did not identify any additional free stone. There were small Vikas's plaques forming and noted wi thin several of the calices. As a result, I surveyed the renal pelvis and then down from the proxima l through the mid and distal ureter before removing the ureteroscope. I then replaced the cystoscope by back-loading it over the indwelling safety wire and passed a 6-Fren ch x 26 cm double-J left ureteral stent. A coil was observed fluoroscopically within the upper pole of the kidney and one cystoscopically within the bladder. The stent was left to a string for ease of removal and because of the lack of significant trauma from the procedure today. The patient was the n taken out of the lithotomy position, awakened from general anesthesia, transferred to a stretcher a hi then transferred to the recovery room in good condition. The string was secured to the [facility] using Steri-Strips and benzoin. Complications: None. Discharge Disposition: The patient will be discharged with the stent in place and follow up on for stent extraction by nurse practitionerGiancarlo in the office since the stent is on a string. Antimicrobial prophylaxis should be provided at the time of the stent extraction. If the patient hernandez s a history of recurrent stone formation, he should be scheduled for metabolic profile assessment wit h 24 hour urine x2, and blood work after about 1 month from the stone and the stent being removed. 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 ZONIA/MODL Voice ID: [id number] Report ID: [id number]
== END 2020-06-22 12:05 | disposition home or self-care (01) ==
LOC: OR 08:13
PROVIDERS: ATTEND Urology
PROC: 0T778DZ Dilation of Left Ureter with Intraluminal Device, Via Natural or Artificial Opening Endoscopic (ICD-10-PCS; 2020-06-22)
PROC: BT1FZZZ Fluoroscopy of Left Kidney, Ureter and Bladder (ICD-10-PCS; 2020-06-22)
PROC: 0TC78ZZ Extirpation of Matter from Left Ureter, Via Natural or Artificial Opening Endoscopic (ICD-10-PCS; principal; 2020-06-22 09:30)
DX: N20.2 Calculus of kidney with calculus of ureter (principal); N13.30 Unspecified hydronephrosis; N17.9 Acute kidney failure, unspecified; N39.0 Urinary tract infection, site not specified; Z20.822 Contact with and (suspected) exposure to COVID-19
CPT/HCPCS: 87086; 88300; 82360; 74450; 51610; 52356; 52005; U0002; J2704; J1580; J2250; J3010; J7120; J0290; 87088